=== PATIENT | male | born 2005 | race Caucasian/White ===

== ENCOUNTER 2024-05-20 19:38 | Emergency (ER) | payer OTHER, BC ==
[2024-05-20 19:50] LABS: BASOPHILS PERCENT AUTO 0.7 % (0.0-1.0); EOSINOPHILS ABSOLUTE AUTO 0.2 K/mm3 (0.0-0.4); EOSINOPHILS PERCENT AUTO 3.7 % (0.0-6.0); HEMATOCRIT 43.9 % (42.0-52.0); HEMOGLOBIN 15.8 gm/dl (14.0-18.0); IMMATURE GRAN ABSOLUTE AUTO 0.02 K/mm3 (0.00-0.05); IMMATURE GRAN PERCENT AUTO 0.4 % (0.0-0.4); LYMPHOCYTES ABSOLUTE AUTO 2.2 K/mm3 (1.0-4.8); LYMPHOCYTES PERCENT AUTO 38.7 % (24.0-44.0); MEAN CORPUSCULAR HEMOGLOBIN 29.6 pg (28.0-32.0); MEAN CORPUSCULAR VOLUME 82.4 fl (83.0-99.0); MEAN PLATELET VOLUME 9.3 fl (9.4-12.4); MONOCYTES ABSOLUTE AUTO 0.5 K/mm3 (0.0-0.8); MONOCYTES PERCENT AUTO 8.3 % (0.0-8.0); NEUTROPHILS ABSOLUTE AUTO 2.7 K/mm3 (1.8-7.7); NEUTROPHILS PERCENT AUTO 48.2 % (41.0-71.0); PLATELET COUNT,PLT 186 K/mm3 (150-400); RED BLOOD CELL COUNT 5.33 M/mm3 (4.52-5.90); WHITE BLOOD CELL COUNT,WBC 5.66 K/mm3 (3.9-11.3)
[2024-05-20] MEDS: Iopamidol 755 Mg/ML 100 ML Bottle IVPUSH ONE (19:52)
[2024-05-20] MEDS ORDERED: Naloxone 0.4 MG/ML SDV IVPUSH PRN (19:53)
[2024-05-20 20:08] LABS: A/G RATIO 1.5 (1-2); ALBUMIN 4.6 g/dl (3.4-5.0); ANION GAP 15.9 (5-15); BILIRUBIN TOTAL 0.8 mg/dL (0.2-1.0); BUN/CREATININE RATIO 8.3 (14-18); CALCIUM 9.9 mg/dL (8.5-10.1); CREATININE 1.2 mg/dL (0.7-1.3); EST CRCL DRUG DOSING (CG) 79.86 mL/min; PROTEIN TOTAL,TP 7.7 g/dl (6.4-8.2)
[2024-05-20] MEDS: fentaNYL 100 MCG/2 ML SDV IVPUSH ONE ×2 (20:08→22:46)
[2024-05-20] MEDS: Sodium Chloride 0.9% 1,000 ML IV ONE ×2 (20:08→21:52)
[2024-05-20 20:11] LABS: INR 1.16; PROTHROMBIN TIME 12.2 SECONDS (9.7-12.0)
[2024-05-20 20:17] LABS: POTASSIUM,K 3.9 mEq/L (3.5-5.1)
[2024-05-20 21:49] LABS: APPEARANCE,URINE CLEAR (Clear); BILIRUBIN,URINE NEGATIVE (Negative); COLOR,URINE LIGHT YELLOW (Yellow); GLUCOSE,URINE NEGATIVE (Negative); KETONES,URINE NEGATIVE (Negative); LEUKOCYTE ESTERASE,URINE NEGATIVE (Negative); NITRITE,URINE NEGATIVE (Negative); OCCULT BLOOD,URINE TRACE-LYSED (Negative); PH,URINE 7.5 (5.0-8.0); PROTEIN,URINE NEGATIVE (Negative); UROBILINOGEN,URINE 0.2 (0.2-1.0)
[2024-05-20] MEDS: Diphtheria,Pertussis(Acell),Tetanus Vaccine 0.5 ML Syringe IM ONE (21:53)
[2024-05-20 21:57] LABS: BACTERIA,URINE RARE /hpf (FEW); EPITHELIAL CELLS,URINE NOT SEEN /hpf (0-5); MUCUS,URINE NOT SEEN /hpf (FEW); WBC,URINE 0-5 /hpf (0-5)
[2024-05-20 21:58] LABS: BARBITURATE SCREEN,URINE NEGATIVE (CUTOFF=200); BENZODIAZEPINES SCREEN,URINE NEGATIVE (CUTOFF=150); BUPRENORPHINE SCREEN,URINE NEGATIVE (CUTOFF=10); METHADONE SCREEN, URINE NEGATIVE (CUT0FF=200); METHAMPHETAMINES SCREEN, URINE NEGATIVE (CUTOFF=500); OXYCODONE SCREEN,URINE NEGATIVE (CUT0FF=100); THC SCREEN,URINE 20 NG/ML NEGATIVE (CUTOFF=50)
[2024-05-20 21:59] LABS: AMPHETAMINES SCREEN, URINE NEGATIVE (CUTOFF=500)
[2024-05-20] MEDS: Lidocaine 1% with EPINEPHrine 1:100,000 10 ML MDV INJECT ONE (22:40)
[2024-05-20] MEDS: Bupivacaine 0.5% 10 ML SDV INJECT ONE (22:50)
[2024-05-21] MEDS: Lidocaine 1% with EPINEPHrine 1:100,000 20 ML MDV ONE (05:59)
[2024-05-21 06:45] VITALS: BP 133/82; PULSE 73
== END 2024-05-20 23:30 ==
LOC: JD.ED 19:38
DX: S81.811A Laceration without foreign body, right lower leg, initial encounter (principal); M54.2 Cervicalgia; Z91.048 Other nonmedicinal substance allergy status; V49.40XA Driver injured in collision with unspecified motor vehicles in traffic accident, initial encounter; Y92.410 Unspecified street and highway as the place of occurrence of the external cause
CPT/HCPCS: 12005; 36415; 70450; 70486; 71045; 71260; 72125; 72128; 72131; 72170; 73030; 73070; 73090; 73100; 73120; 73552; 73560; 73590; 73600; 73620; 74177; 80053; 80306; 80307; 81001; 82150; 83605; 85025; 85610; 86850; 86900; 86901; 93005; 96361; 96374; 96376; 99285; J0665; J3010; J7030; Q9967; 12002; 93010; 99284; J3490